=== PATIENT | male | born 1960 | race Caucasian/White ===

== ENCOUNTER 2017-10-29 14:00 | Emergency (ER) | payer BC ==
[~2017-10-29] VITALS: Ht 177.8 cm; Wt 117.9 kg
[~2017-10-29 14:00] MED LIST: ATIVAN2 MG PO; CLONAZEPAM2 MG GT
== END 2017-10-29 14:32 | disposition home or self-care (01) ==
LOC: ED 14:00
DX: F10.129 Alcohol abuse with intoxication, unspecified (principal); Z88.2 Allergy status to sulfonamides; Z88.8 Allergy status to other drugs, medicaments and biological substances; Z79.899 Other long term (current) drug therapy
CPT/HCPCS: 99283